=== PATIENT | female | born 1965 | race Caucasian/White ===

== ENCOUNTER 2020-01-16 20:06 | Emergency (ER) | payer OTHER ==
[~2020-01-16] VITALS: Ht 154.9 cm; Wt 105.2 kg
[2020-01-16] MEDS ORDERED: SYNTHROID175 MCG (20:30)
[2020-01-16] MEDS ORDERED: JANUMET 50-1,01 EACH (20:31)
[2020-01-16] MEDS ORDERED: GLIMEPIRIDE4 MG (20:31)
[2020-01-16] MEDS ORDERED: VASOTEC20 M1 (20:32)
[2020-01-16] MEDS ORDERED: FENOFIBRATE150 MG (20:32)
[2020-01-16] MEDS ORDERED: LIPITOR40 MG (20:32)
[2020-01-16] MEDS ORDERED: ARIPIPRAZOLE OD15 MG (20:33)
[2020-01-16] MEDS ORDERED: CLONAZEPAM0.5 M1 (20:33)
[2020-01-16] MEDS ORDERED: ZOLOFT25 MG (20:33)
[2020-01-16] MEDS ORDERED: OMEGA 3 1,0001 EACH (20:33)
[2020-01-16] MEDS ORDERED: VITAMIN D3-ALO1 EACH (20:34)
== END 2020-01-16 23:41 | disposition home or self-care (01) ==
LOC: ER 20:06
DX: N30.81 Other cystitis with hematuria (principal); R30.0 Dysuria; R50.9 Fever, unspecified; Z03.818 Encounter for observation for suspected exposure to other biological agents ruled out

== ENCOUNTER 2022-08-11 16:29 | Emergency (ER) | payer OTHER ==
[~2022-08-11] VITALS: Ht 154.9 cm; Wt 99.8 kg
[~2022-08-11 16:29] MED LIST: ARIPIPRAZOLE OD15 MG; CLONAZEPAM0.5 M1; FENOFIBRATE150 MG; GLIMEPIRIDE4 MG; JANUMET 50-1,01 EACH; LIPITOR40 MG; OMEGA 3 1,0001 EACH; SYNTHROID175 MCG; VASOTEC20 M1; VITAMIN D3-ALO1 EACH; ZOLOFT25 MG
[2022-08-11] MEDS ORDERED: GLIMEPIRIDE4 M1 PO (17:01)
[2022-08-11] MEDS ORDERED: ADULT LOW DOSE81 M1 (17:02)
== END 2022-08-11 21:31 | disposition home or self-care (01) ==
LOC: ER 16:29
DX: S40.011A Contusion of right shoulder, initial encounter (principal); W18.39XA Other fall on same level, initial encounter; Y93.9 Activity, unspecified; Y92.9 Unspecified place or not applicable; Y99.9 Unspecified external cause status